=== PATIENT | female | born 1955 | race Caucasian/White ===

== ENCOUNTER 2016-07-11 19:28 | Emergency (ER) | payer OTHER ==
[2016-07-11 19:48] VITALS: PULSE 84; TEMP 98.3; BMI 23.8
[2016-07-11] MEDS ORDERED: KETOROLAC TROMETHAMINE 60 MG/2 ML VIAL IM ONE (20:40)
[2016-07-11] MEDS ORDERED: KETOROLAC TROMETHAMINE 60 MG/2 ML VIAL ONE (20:40)
[2016-07-11] MEDS ORDERED: OXYCODONE/APAP 5/325MG COMBO TABLET PO ONE (21:53)
[2016-07-11] MEDS ORDERED: OXYCODONE/APAP 5/325MG COMBO TABLET ONE ×2 (21:59→22:06)
--- NOTE | 2016-07-11 22:27 | PDOC ---
*Physical Exam - Vital Signs Last Vital Signs Temp Pulse Resp BP Pulse Ox 98.3 F 84 22 180/101 98 07/11/16 19:46 07/11/16 19:46 07/11/16 19:46 07/11/16 19:46 07/11/16 19:46 - Physical Exam Comments: 07/11/16 22:21 Sign-out received from fast track provider Pravin. Pt interviewed and examined. Ancillary studies reviewed. Patient states she is in an exorbitant amount of pain. -2 tab 5/325 Percocet X-ray wet read negative for fracture or new effusion. Per RN, patient took one Percocet but stated that "this does nothing for me" and refused second tablet. Patient is tearful and states that normally for her knee pain she gets Dilaudid "to take the edge off" and she has spoken to her PMD Kristin who states he can help her f/u with the appointment with Dr. Winters next week. [place] [employer] ATTENDANT referenced - patient does not have extensive history of narcotics use. -1 mg Dilaudid IVPB 07/11/16 23:37 Patient reassessed; states her pain is feeling much better but she feels a little nauseous. 8 mg Zofran ODT Patient is ready to go home; states her is picking her up. Advised patient to f/u with ortho as discussed with Dr. Foster. Advised patient of signs and symptoms for return to ER; patient verbalized understanding and agrees to plan. 07/11/16 23:38 ED Treatment Course - Medications Given in the ED: ED Medications Discontinued Medications Generic Name Dose Route Start Last Admin Trade Name Keven PRN Reason Stop Dose Admin Ketorolac Tromethamine 60 mg 07/11/16 20:40 07/11/16 20:46 Toradol Injection - IM 07/11/16 20:41 60 mg ONCE ONE Administration Oxycodone/Acetaminophen 2 combo 07/11/16 21:53 07/11/16 22:18 Percocet 5/325 - PO 07/11/16 21:54 2 combo ONCE ONE Administration *DC/Admit/Observation/Transfer Diagnosis at time of Disposition: Left knee pain Qualifiers: Chronicity: chronic Qualified Code(s): M25.562 - Pain in left knee - Discharge Dispostion Admit: No - Referrals Referrals: Abimael Foster MD [Primary Care Provider] - Rehan Winters MD [Staff Physician] - - Patient Instructions Printed Discharge Instructions: DI for Knee Pain Additional Instructions: As discussed, please follow-up with Dr. Winters on Wednesday for further evaluation of your left knee pain. If you experience loss of sensation, numbness, or tingling to your legs, or inability to move your leg, or any new or worsening symptoms, please return to the ER.
[2016-07-11] MEDS ORDERED: HYDROmorphone HCL CARPU-JECT 1 MG/1 ML DISP.SYRIN IVPUSH ONE (23:03)
[2016-07-11] MEDS ORDERED: HYDROmorphone HCL CARPU-JECT 1 MG/1 ML DISP.SYRIN ONE (23:05)
[2016-07-11] MEDS ORDERED: ONDANSETRON 8 MG TABLET (FP) PO ONE (23:37)
[2016-07-11] MEDS ORDERED: ONDANSETRON *ODT* 4 MG TABLET SL ONE (23:38)
[2016-07-11 23:46] VITALS: BP 158/82
== END 2016-07-11 23:46 | disposition home or self-care (01) ==
LOC: JERFT 19:28 → JER 19:28
PROC: 3E0233Z Introduction of Anti-inflammatory into Muscle, Percutaneous Approach (ICD-10-PCS; principal; 2016-07-11)
PROC: 3E033NZ Introduction of Analgesics, Hypnotics, Sedatives into Peripheral Vein, Percutaneous Approach (ICD-10-PCS; 2016-07-11)
DX: M25.562 Pain in left knee (principal)
CPT/HCPCS: 73562-TC-LT; 96372; 96374; 99281-25

== ENCOUNTER 2016-07-31 05:43 | Emergency (ER) | payer OTHER ==
[2016-07-31] MEDS ORDERED: SODIUM CHLORIDE 1,000 ML IV SCH (06:00)
--- NOTE | 2016-07-31 06:00 | PDOC ---
History of Present Illness - General History Source: EMS, Spouse Exam Limitations: Clinical Condition - History of Present Illness Initial Comments: 07/31/16 06:33 The patient is a 60 year old female with significant past medical history of hypertension, anemia, kidney stones and chronic left knee pain who presents to the ED BIBA from home with AMS just prior to arrival. As per , patient arrived home around 7pm last night when he noted her to be confused and have changes in mental status. Patient went to bed last night and after waking up he was not able to communicate with her. He immediately contacted EMS and patient was brought here to the ER. states patient was not complaining of any headache, chest pain, or SOB. Allergies: NKDA Social History: Cigarette use (10 daily). No alcohol or drug use reported Past Surgical History: Abdominal hernia repair, appendectomy PCP: None reported <Adry Hankins - Last Filed: 07/31/16 06:35> - General History Source: EMS, Family <Kishor Cancino - Last Filed: 07/31/16 06:48> - General Stated Complaint: WEAKNESS Time Seen by Provider: 07/31/16 05:47 Past History <Adry Hankins - Last Filed: 07/31/16 06:35> - Past Medical History Anemia: Yes Disorders: Yes (kidney stones) HTN: Yes Kidney Stones: Yes - Surgical History Abdominal Surgery: Yes (HERNIA repair) Appendectomy: Yes - Immunization History Immunization Up to Date: Yes - Psycho/Social/Smoking Cessation Hx Anxiety: No Suicidal Ideation: No Smoking Status: Yes Smoking History: Current every day smoker Have you smoked in the past 12 months: No Number of Cigarettes Smoked Daily: 10 'Breaking Loose' booklet given: 03/19/16 Hx Alcohol Use: No Drug/Substance Use Hx: No Substance Use Type: None Hx Substance Use Treatment: No <Kishor Cancino - Last Filed: 07/31/16 06:48> - Past Medical History Allergies/Adverse Reactions: Allergies Allergy/AdvReac Type Severity Reaction Status Date / Time No Known Allergies Allergy Verified 07/11/16 19:42 Home Medications: Ambulatory Orders Losartan/Hydrochlorothiazide [Losartan-Hctz 100-25 mg Tablet] 1 each PO BID 08/06 Sertraline HCl [Zoloft -] 50 mg PO DAILY #30 tablet 06/12/15 Alprazolam [Xanax] 0.5 mg PO DAILY PRN 03/19/16 Review of Systems - Review of Systems Able to Perform ROS?: No Comments:: 07/31/16 06:33 Unable to obtain due to clinical condition <BeckyanetteRodrigoAdry - Last Filed: 07/31/16 06:35> *Physical Exam - Vital Signs Last Vital Signs Temp Pulse Resp BP Pulse Ox 113 H 22 257/103 94 L 07/31/16 05:47 07/31/16 05:47 07/31/16 05:47 07/31/16 05:47 - Physical Exam Comments: 07/31/16 06:33 GENERAL: Well developed, well nourished. Somnolent, but arousable. Moderate distress. HEENT: Normocephalic, atraumatic. PERRLA, EOMI. No conjunctival pallor. Sclera are non- icteric. Moist mucous membranes. Oropharynx is clear. NECK: Supple. Full ROM. No JVD. Carotid pulses 2+ and symmetric, without bruits. No thyromegaly. No lymphadenopathy. CARDIOVASCULAR: Regular rate and rhythm. No murmurs, rubs, or gallops. Distal pulses are 2+ and symmetric. PULMONARY: No evidence of respiratory distress. Decreased breath sounds. No wheezing, rales or rhonchi. ABDOMINAL: Soft. Non-tender. Non-distended. No rebound or guarding. No organomegaly. Normoactive bowel sounds. MUSCULOSKELETAL No bony deformities or tenderness. No CVA tenderness. EXTREMITIES: No cyanosis. No clubbing. No edema. No calf tenderness. SKIN: Warm and dry. Normal capillary refill. No rashes. No jaundice. NEUROLOGICAL: Patient is somnolent, but arousable. Not answering questions appropriately. Not following commands. Moving upper extremities spontaneously, but not moving lower extremities. Dysarthric. <CrAdry - Last Filed: 07/31/16 06:35> NIH Stroke Scale - Last Known Well Date/Time & Onset Date Last Known Well: 07/30/16 Time Last Known Well: 19:00 - Initial Evaluation Level of consciousness: Not alert, but arousable with minimal stimulation Ask patient the month and their age: Both incorrect Ask patient to open & close eyes; make fist and let go: Both incorrect Best gaze (horizontal eye movement): Partial gaze palsy Visual field testing: Bilateral hemianopia (blind including cortical blindness) Facial paresis (Show teeth/raise eyebrows/close eyes tight): Minor paralysis ( flattened nasolabial fold, asymmetry on smiling) Motor Function: Left Arm: Some effort against gravity Motor Function: Right Arm: Some effort against gravity Motor Function: Left Leg: No effort against gravity Motor Function: Right Leg: No effort against gravity Limb Ataxia: Present in two limbs Sensory(Use pinprick test arms,legs,trunk,face/side to side): Mild to moderate decrease in sensation Best language (Describe picture, name items, read sentences): Severe aphasia Dysarthria (read several words): Near unintelligible or unable to speak Extinction and Inattention: Inattention or extinction bilaterally to one of the sensory modalities - Total Score NIH Stroke Scale Score: 28 <Kishor Cancino - Last Filed: 07/31/16 06:48> tPA Exclusion Checklist 0-3hr - Time Elapsed Date last known well: 07/30/16 Time last known well: 19:00 Elaspsed time: Day(s) and 11 Hour(s) and 44 Minutes - Thrombolytic Therapy Candidate Is the patient eligible for Thrombolytic Therapy?: No - Exclusion Criteria 0-3hr SBP greater than 185 or DBP greater than 110mmHg despite tx: Yes Recent IC/spinal surgery,head trauma or stroke w/in last 3mo: No Hx of previous IC hemorrhage, IC neoplasm, AVM or aneurysm: No Active internal bleeding: No Blding diathesis(low plt ct, inc PTT,INR>1.7 or use of NOAC): No Symptoms suggest subarachnoid hemorrhage: No CT demonstrates multilobar infarct(>1/3 cerebral hemiphere): No Arterial puncture at noncompressible site in previous 7 days: No Blood glucose concentration less than 50mg/dL (2.7mmol/L): No - Relative Exclusion Criteria 0-3h Life expectancy <1yr/severe co-morbid illness/ETHNOGRAPHIC MATERIALS CONSERVATOR on admit: No : No Patient/family refused: No Stroke severity too mild: No Recent acute DC (w/in previous 3 months): No Seizure at onset with postictal residual neuro impairments: No Major surgery or serious trauma w/in previous 14 days: No Recent GI or hemorrhage (w/in previous 21 days): No - Ineligibility reason(s) Reasons No tPA given: Outside of window - delayed arrival, See reason(s) noted above (BP 257/103) <Kishor Cancino - Last Filed: 07/31/16 06:48> Heart Score/ECG Review - ECG Impressions Comment:: 07/31/16 06:03 Sinus tachycardia @110bpm Possible left atrial enlargement ST & T wave abnormality, consider lateral ischemia Abnormal ECG <Adry Hankins - Last Filed: 07/31/16 06:35> Critical Care Time/MDM Note - Medical Decision Making Note: 07/31/16 06:32 EXAM: CT brain without contrast Reviewed by Imaging conference reservationist: FINDINGS: Positive for a 5.8 cm x 5.2 cm left frontal white matter parenchymal hemorrhage. Hemorrhage also involves the left basal ganglia. There is also a large amount of subarachnoid blood predominantly within the sub-arachnoid spaces of the left hemisphere but also in the central and basal cisterns as well as in the left lateral, third, and fourth ventricles. The mass effect from the hemorrhage results in a 6.6 mm frontal subfalcine shift to the right. Although this could be a primary parenchymal hemorrhage with blood leaking into the subarachnoid spaces, the possibility of a ruptured aneurysm causing subarachnoid and parenchymal blood should be considered as well. 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 07/31/16 06:34 Documentation prepared by Adry Hankins, acting as medical operations supervisor for Kishor Cancino MD <Adry Hankins - Last Filed: 07/31/16 06:35> - Medical Decision Making Note: 07/31/16 06:45 Dr. Cancino: The scribe's documentation has been prepared under my direction and personally reviewed by me in its entirery. I confirm that the note above accurately reflects all work, treatment, procedures, and medical decision making performed by me. Pt found to have a large subarchnoid and intraparcheymal bleeing of left frontal lobe. Pt going to be transferred to [facility] for Neurosurgical intervention. Case accepted by Dr. Beth and Dr. Larry. [facility] to make arrangements for transport. <Kishor Cancino - Last Filed: 07/31/16 06:48> Discharge Disposition <CrAdry - Last Filed: 07/31/16 06:35> - Discharge Dispostion Admit: No - Transfer to Acute Care Facility Receiving Facility: [facility] Accepting Physician:: Dr. Beth / Dr. Larry <Kishor Cancino - Last Filed: 07/31/16 06:48> - Diagnosis Subarchnoid hemorrhage-prolonged coma, Intraparenchymal hemorrhage of brain - Discharge Dispostion Disposition: TRANSFER ACUTE CARE/OTHER HOSP Condition at time of disposition: Guarded
[2016-07-31 06:02] VITALS: BMI 23.7
[2016-07-31] MEDS ORDERED: niCARdipine HCL 25 MG/10 ML AMPUL IVPB ONE (06:14)
[2016-07-31] MEDS ORDERED: NICARDIPINE 25 MG in DEXTROSE 5%-WATER - 240 ML IVPB SCH (06:15)
[2016-07-31] MEDS ORDERED: BUMETANIDE INJECTION 1 MG/4 ML VIAL ONE (06:16)
[2016-07-31 06:25] LABS: BASOPHIL 0.1 % (0-2.0); MCH 29.3 pg (25.7-33.7); MEAN CELL VOLUME 86.3 fl (80-96); NEUTROPHILS 91.4 % (42.8-82.8); PLATELET COUNT 311 K/MM3 (134-434); RDW 14.2 % (11.6-15.6); WHITE BLOOD COUNT 18.9 K/mm3 (4.0-10.0)
[2016-07-31 06:33] LABS: INR 1.04 (0.82-1.09); PROTHROMBIN TIME (PATIENT) 11.4 SEC (9.98-11.88)
[2016-07-31 06:33] LABS: URINE APPEARANCE CLEAR; URINE BILIRUBIN NEGATIVE (NEGATIVE); URINE COLOR LTYELLOW; URINE GLUCOSE (UA) 2+ (NEGATIVE); URINE KETONE NEGATIVE (NEGATIVE); URINE LEUK ESTERASE NEGATIVE (NEGATIVE); URINE NITRITE NEGATIVE (NEGATIVE); URINE UROBILINOGEN NEGATIVE E.U./dl (0.2-1.0)
[2016-07-31 06:36] LABS: URINE BLOOD 2+ (NEGATIVE); URINE PROTEIN 3+ (NEGATIVE)
[2016-07-31 06:38] LABS: URINE BACTERIA MODERATE /hpf (NONE SEEN); URINE MUCUS RARE; URINE RBC 17 /hpf (0-3); URINE WBC 3 /hpf (3-5)
[2016-07-31] MEDS ORDERED: levETIRAcetam 500 MG/5 ML INJECTION VIAL IVPB ONE (06:40)
[2016-07-31 06:41] LABS: URINE MARIJUANA THC NEGATIVE ng/ml (CUTOFF=50)
[2016-07-31 06:42] LABS: ALBUMIN 4.4 g/dl (3.4-5.0); BILIRUBIN,TOTAL 0.6 mg/dL (0.2-1.0); CALCIUM 9.7 mg/dL (8.5-10.1); CREATININE 1.2 mg/dL (0.55-1.02); TOT PROT 8.6 g/dl (6.4-8.2)
[2016-07-31 06:43] LABS: TROPONIN I 0.11 ng/ml (0.00-0.05)
[2016-07-31 06:54] VITALS: PULSE 70
[2016-07-31 07:20] VITALS: BP 220/120; TEMP 97.9
--- NOTE | 2016-07-31 09:47 | EKG ---
Test Reason : Blood Pressure : / mmHG Vent. Rate : 110 BPM Atrial Rate : 110 BPM P-R Int : 168 ms QRS Dur : 098 ms QT Int : 358 ms P-R-T Axes : 065 029 091 degrees QTc Int : 484 ms SINUS TACHYCARDIA POSSIBLE LEFT ATRIAL ENLARGEMENT NONSPECIFIC ST ABNORMALITY ABNORMAL ECG Confirmed by DONNA RODRÍGUEZ MD ([id number]) on 07/31/2016 9:47:16 AM Referred By: Confirmed By:DONNA RODRÍGUEZ MD
== END 2016-07-31 07:22 | disposition short-term general hospital (02) ==
LOC: JER 05:43
PROC: 3E033GC Introduction of Other Therapeutic Substance into Peripheral Vein, Percutaneous Approach (ICD-10-PCS; principal; 2016-07-31)
DX: I60.9 Nontraumatic subarachnoid hemorrhage, unspecified (principal); R40.20 Unspecified coma; I10 Essential (primary) hypertension; Z87.442 Personal history of urinary calculi; F17.210 Nicotine dependence, cigarettes, uncomplicated
CPT/HCPCS: 36415; 70450-TC; 71010-TC; 80053; 80307; 81003; 81015; 82465; 82550; 83718; 83721; 84478; 84484; 85025; 85610; 86850; 86900; 86901; 93005; 93010; 96365; 99285-25

== ENCOUNTER 2017-12-09 16:07 | Emergency (ER) | payer OTHER ==
[2017-12-09 16:31] VITALS: TEMP 98.7; BMI 27.2
[2017-12-09] MEDS ORDERED: morphine CARPU-JECT 4 MG/1 ML DISP.SYRIN IVPUSH ONE ×2 (17:38→19:13)
--- NOTE | 2017-12-09 17:47 | PDOC ---
History of Present Illness - General Chief Complaint: Weakness Stated Complaint: WEAKNESS Time Seen by Provider: 12/09/17 17:03 - History of Present Illness Initial Comments: 12/09/17 17:48 62 yo F w a hx hypertension, anemia, kidney stones, Brain aneurysm and chronic left knee pain is here with 4 hours of intense 10/10 RLQ abdominal pain with radiation to the back and groin. She has had many kidney stones in the past and says this is exactly how it always feels. She denies fever, hematuria, urgency, frequency, recent infections, trauma, recent travel, headache, n/v/d. Past History - Past Medical History Allergies/Adverse Reactions: Allergies Allergy/AdvReac Type Severity Reaction Status Date / Time No Known Allergies Allergy Verified 07/11/16 19:42 Home Medications: Ambulatory Orders Losartan/Hydrochlorothiazide [Losartan-Hctz 100-25 mg Tablet] 1 each PO BID 08/06 Sertraline HCl [Zoloft -] 50 mg PO DAILY #30 tablet 06/12/15 Alprazolam [Xanax] 0.5 mg PO DAILY PRN 03/19/16 Amlodipine Besylate 10 mg PO DAILY 12/09/17 Aspirin [Aspirin EC] 81 mg PO DAILY 12/09/17 Ciprofloxacin [Cipro -] 250 mg PO BID #6 tablet 12/09/17 Dextromethorphan HBr/Quinidine [Nuedexta 20-10 mg Capsule] 1 each PO BID Famotidine 20 mg PO DAILY 12/09/17 Lisinopril [Prinivil -] 40 mg PO DAILY 12/09/17 Metoprolol Succinate [Toprol Xl] 25 mg PO DAILY 12/09/17 Quetiapine Fumarate [Seroquel -] 25 mg PO HS 12/09/17 Trazodone HCl 50 mg PO HS 12/09/17 levETIRAcetam [Keppra -] 500 mg PO BID 12/09/17 Methocarbamol [Robaxin -] 500 mg PO TID #30 tablet 12/10/17 Anemia: Yes COPD: No Disorders: Yes (kidney stones) HTN: Yes Kidney Stones: Yes Psychiatric Problems: Yes (depression) - Surgical History Abdominal Surgery: Yes (HERNIA repair) Appendectomy: Yes - Immunization History Immunization Up to Date: Yes - Suicide/Smoking/Psychosocial Hx Smoking Status: Yes Smoking History: Current some day smoker Have you smoked in the past 12 months: No Number of Cigarettes Smoked Daily: 10 Information on smoking cessation initiated: No 'Breaking Loose' booklet given: 03/19/16 Hx Alcohol Use: No Drug/Substance Use Hx: No Substance Use Type: None Hx Substance Use Treatment: No Review of Systems - Review of Systems Comments:: 12/09/17 18:03 GASTROINTESTINAL: Positive: RLQ abdominal pain Absent:abdominal distension, nausea, vomiting, diarrhea, constipation, melena, hematochezia GENITOURINARY: Positive: dysuria, flank pain Absent:frequency, urgency, hesitancy, hematuria, genital pain CONSTITUTIONAL: Absent: fever, chills, diaphoresis, generalized weakness, malaise, loss of appetite HEENT: Absent: rhinorrhea, nasal congestion, throat pain, throat swelling, difficulty swallowing, mouth swelling, ear pain, eye pain, visual Changes CARDIOVASCULAR: Absent: chest pain, syncope, palpitations, irregular heart rate, lightheadedness , peripheral edema RESPIRATORY: Absent: cough, shortness of breath, dyspnea with exertion, orthopnea, wheezing, stridor, hemoptysis MUSCULOSKELETAL: Absent: myalgia, arthralgia, joint swelling SKIN: Absent: rash, itching, pallor HEMATOLOGIC/IMMUNOLOGIC: Absent: easy bleeding, easy bruising, lymphadenopathy, frequent infections ENDOCRINE: Absent: unexplained weight gain, unexplained weight loss, heat intolerance, cold intolerance NEUROLOGIC: Absent: headache, focal weakness or paresthesias, dizziness, unsteady gait, seizure, mental status changes, bladder or bowel incontinence PSYCHIATRIC: Absent: anxiety, depression, suicidal or homicidal ideation, hallucinations. *Physical Exam - Vital Signs Last Vital Signs Temp Pulse Resp BP Pulse Ox 98.7 F 76 18 171/91 98 12/09/17 16:30 12/09/17 16:30 12/09/17 16:30 12/09/17 16:30 12/09/17 16:30 - Physical Exam Comments: 12/09/17 18:05 ABDOMINAL: The RLQ is TTP Soft. Non-distended. No rebound or guarding. No organomegaly. Normoactive bowel sounds. GENERAL: Patient is in significant distress due to her pain which she attributes to kidney stones. Well developed, well nourished. Awake and alert. HEENT: PERRLA, EOMI. No conjunctival pallor. Sclera are non-icteric. Moist mucous membranes. Oropharynx is clear. NECK: Supple. Full ROM. No JVD. Carotid pulses 2+ and symmetric, without bruits. No thyromegaly. No lymphadenopathy. CARDIOVASCULAR: Regular rate and rhythm. No murmurs, rubs, or gallops. Distal pulses are 2+ and symmetric. PULMONARY: No evidence of respiratory distress. Lungs clear to auscultation bilaterally. No wheezing, rales or rhonchi. MUSCULOSKELETAL There is obvious R CVA tenderness. Normal range of motion at all joints. No bony deformities or tenderness. EXTREMITIES: No cyanosis. No clubbing. No edema. No calf tenderness. SKIN: Warm and dry. Normal capillary refill. No rashes. No jaundice. NEUROLOGICAL: Alert, awake, appropriate. Cranial nerves 2-12 intact. No deficits to light touch and temperature in face, upper extremities and lower extremities. No motor deficits in the in face, upper extremities and lower extremities. Normoreflexic in the upper and lower extremities. Normal speech. Toes are down-going bilaterally. Gait is normal without ataxia. PSYCHIATRIC: Cooperative. Good eye contact. Appropriate mood and affect. 12/09/17 18:06 Heart Score/ECG Review - Electrocardiogram EKG: Normal - Age Age: 45-65 - ECG Intrepretation Rhythm: Regular Rhythm - Blanch Blanch: Normal - P and FL Delta Wave(s) Present: No WPW: No - ST and T Early Repolarization: No Non Specific ST-T Wave changes: No Flattened T Waves: No Prolonged Q-T Interval: No - ECG Impressions Normal ECG: No Non-specific ST Elevation: No Ischemic Changes: No Torsades ridge Pointes: No WPW: No ED Treatment Course - LABORATORY CBC & Chemistry Diagram: 12/09/17 18:23 12/09/17 18:23 Medical Decision Making - Medical Decision Making 12/09/17 18:08 62 yo F w a hx of many kidney stones here w/ RLQ abd pain radiating to back and groin which she states is exactly how her kidney stones always feel. Plan: Non-con abd CT, Pain meds, labs, urine, re-assess. *DC/Admit/Observation/Transfer Diagnosis at time of Disposition: UTI (urinary tract infection) - Discharge Dispostion Disposition: HOME Condition at time of disposition: Stable - Prescriptions Prescriptions: Ciprofloxacin [Cipro -] 250 mg PO BID #6 tablet Methocarbamol [Robaxin -] 500 mg PO TID #30 tablet - Referrals Referrals: Abimael Foster MD [Primary Care Provider] - - Patient Instructions Printed Discharge Instructions: Urinary Tract Infection Additional Instructions: You were seen here today because you were having some lower abdominal pain on the Right side. We did some tests and you were diagnosed with a UTI. We gave you medications for the infection and some pain medication as well. It is at [facility]. Please follow up with your PCP. Please come back to the ED if symptoms worsen, if a new symptom develops, or if anything else concerning happens. Thank you - Post Discharge Activity
[2017-12-09] MEDS ORDERED: morphine SULFATE 4 MG/ML VIAL ONE ×2 (18:01→19:39)
[2017-12-09 18:35] LABS: BASO % 0.5 % (0-2.0); EOS % 2.4 % (0-4.5); HEMATOCRIT 38.2 % (32.4-45.2); HEMOGLOBIN 12.8 GM/dL (10.7-15.3); LYMPH % 28.5 % (8-40); MCH 28.9 pg (25.7-33.7); MCHC 33.6 g/dl (32.0-36.0); MEAN CELL VOLUME 85.9 fl (80-96); MEAN PLT VOLUME 8.2 fl (7.5-11.1); MONO % 7.4 % (3.8-10.2); NEUT % 61.2 % (42.8-82.8); PLATELET COUNT 272 K/MM3 (134-434); RBC 4.45 M/mm3 (3.60-5.2); RDW 14.1 % (11.6-15.6); WHITE BLOOD COUNT 10.1 K/mm3 (4.0-10.0)
[2017-12-09 18:55] LABS: ALBUMIN 3.5 g/dl (3.4-5.0); ANION GAP 9 (8-16); BILIRUBIN,TOTAL 0.3 mg/dL (0.2-1.0); BLOOD UREA NITROGEN 22 mg/dL (7-18); CALCIUM 8.9 mg/dL (8.5-10.1); CHLORIDE 105 mmol/L (98-107); CO2 28 mmol/L (21-32); GLUCOSE,RANDOM 132 mg/dL (74-106); POTASSIUM 3.8 mmol/L (3.5-5.1); SGOT/AST 10 U/L (15-37); SGPT/ALT 25 U/L (12-78); SODIUM 142 mmol/L (136-145); TOT PROT 7.2 g/dl (6.4-8.2)
[2017-12-09 18:56] LABS: ALK PHOS 120 U/L (45-117)
[2017-12-09] MEDS ORDERED: MORPHINE SULFATE 2 MG/ML VIAL ONE (19:39)
[2017-12-09 19:53] VITALS: BP 138/78; PULSE 67
[2017-12-09 20:09] LABS: URINE APPEARANCE SLCLOUDY; URINE BILIRUBIN NEGATIVE (<2.0 mg/dL); URINE COLOR YELLOW; URINE GLUCOSE (UA) NEGATIVE (NEGATIVE); URINE KETONE NEGATIVE (NEGATIVE); URINE LEUK ESTERASE NEGATIVE (NEGATIVE); URINE NITRITE POSITIVE (NEGATIVE); URINE PROTEIN NEGATIVE (NEGATIVE); URINE UROBILINOGEN NEGATIVE mg/dL (0.2-1.0)
[2017-12-09] MEDS ORDERED: KETOROLAC TROMETHAMINE 30 MG/1 ML VIAL IVPUSH ONE (20:54)
[2017-12-09] MEDS ORDERED: KETOROLAC TROMETHAMINE 30 MG/1 ML VIAL ONE (21:19)
[2017-12-09 21:25] LABS: EPI CELLS RARE /HPF (FEW); URINE BACTERIA RARE /hpf (NONE SEEN); URINE MUCUS RARE
[2017-12-09] MEDS ORDERED: CIPROFLOXACIN 250 MG TABLET (RESTRICTED TO ID) PO ONE (21:41)
--- NOTE | 2017-12-09 23:10 | PDOC ---
*Physical Exam - Vital Signs Last Vital Signs Temp Pulse Resp BP Pulse Ox 98.7 F 67 22 138/78 96 12/09/17 16:30 12/09/17 19:52 12/09/17 19:52 12/09/17 19:52 12/09/17 19:52 ED Treatment Course - LABORATORY CBC & Chemistry Diagram: 12/09/17 18:23 12/09/17 18:23 - ADDITIONAL ORDERS Additional order review: Laboratory Results 12/09/17 12/09/17 20:00 18:23 Sodium 142 Potassium 3.8 Chloride 105 Carbon Dioxide 28 Anion Gap 9 BUN 22 H Creatinine 1.0 Creat Clearance w eGFR 56.37 Random Glucose 132 H Calcium 8.9 Total Bilirubin 0.3 AST 10 L ALT 25 Alkaline Phosphatase 120 H Total Protein 7.2 Albumin 3.5 Urine Color Yellow Urine Appearance Slcloudy Urine pH 6.0 Ur Specific [place] 1.016 Urine Protein Negative Urine Glucose (UA) Negative Urine Ketones Negative Urine Blood 1+ H Urine Nitrite Positive Urine Bilirubin Negative Urine Urobilinogen Negative Ur Leukocyte Esterase Negative Urine WBC (Auto) 10 Urine RBC (Auto) 12 Ur Epithelial Cells Rare Urine Bacteria Rare Urine Mucus Rare 12/09/17 18:23 RBC 4.45 MCV 85.9 MCHC 33.6 RDW 14.1 MPV 8.2 Neutrophils % 61.2 D Lymphocytes % 28.5 D Monocytes % 7.4 D Eosinophils % 2.4 D Basophils % 0.5 D - Medications Given in the ED: ED Medications Discontinued Medications Generic Name Dose Route Start Last Admin Trade Name Keven PRN Reason Stop Dose Admin Ciprofloxacin 250 mg 12/09/17 21:41 12/09/17 22:26 Cipro (Restricted To Id) PO 12/09/17 21:42 250 mg ONCE ONE Administration Ketorolac Tromethamine 30 mg 12/09/17 20:54 12/09/17 21:15 Toradol Injection - IVPUSH 12/09/17 20:55 30 mg ONCE ONE Administration Morphine Sulfate 4 mg 12/09/17 17:38 12/09/17 18:12 Morphine Injection - IVPUSH 12/09/17 17:39 4 mg ONCE ONE Administration Morphine Sulfate 6 mg 12/09/17 19:13 12/09/17 19:46 Morphine Injection - IVPUSH 12/09/17 19:14 6 mg ONCE ONE Administration Medical Decision Making - Medical Decision Making 12/09/17 23:02 Patient is a 62 year old female with PMH of kidney stones presenting to ED with complaints of RLQ abdominal pain that radiates to back and groin. Patient was signed out to me by Dr. De Guzman. We were awaiting results of CT scan and UA. CT scan did not show evidence for urolithiasis or obstructive uropathology. Air/ gas foci within urinary bladder lumen. No AAA. UA showed Nitrites, blood and 10WBC. Due to patient's history of stone development and positive UTI, patient was given Cipro 250mg in the ED. Patient was prescribed Cipro 250mg to take BID for 3 days. Patient was given morphine and Toradol for pain. Patient's vital signs were stable. Patient could not be discharged home because she uses a walker and is needs help to climb up 29 steps to get to her home. Her son won't be available until 6 am and her insurance does not cover ambulance. Patient was admitted under ED obs. She will be d/c home when her son comes to pick her up. *DC/Admit/Observation/Transfer Diagnosis at time of Disposition: UTI (urinary tract infection) - Discharge Dispostion Disposition: HOME Condition at time of disposition: Stable Decision to Admit order Date/Time: Decision to Admit Order Category Date Time Status Decision to Admit to Hospital Routine Admission 12/09/17 22:11 Active - Prescriptions Prescriptions: Ciprofloxacin [Cipro -] 250 mg PO BID #6 tablet Methocarbamol 250 mg PO BID 3 Days #6 tablet - Referrals Referrals: Abimael Foster MD [Primary Care Provider] - - Patient Instructions Printed Discharge Instructions: Urinary Tract Infection Additional Instructions: You were seen here today because you were having some lower abdominal pain on the Right side. We did some tests and you were diagnosed with a UTI. We gave you medications for the infection and some pain medication as well. It is at [facility]. Please follow up with your PCP. Please come back to the ED if symptoms worsen, if a new symptom develops, or if anything else concerning happens. Thank you - Post Discharge Activity
[2017-12-10] MEDS ORDERED: morphine CARPU-JECT 4 MG/1 ML DISP.SYRIN IVPUSH ONE (02:22)
[2017-12-10] MEDS ORDERED: morphine SULFATE 4 MG/ML VIAL ONE (02:25)
[2017-12-10] MEDS ORDERED: MORPHINE SULFATE 2 MG/ML VIAL ONE (02:25)
--- NOTE | 2017-12-11 11:25 | EKG ---
Test Reason : Blood Pressure : / mmHG Vent. Rate : 068 BPM Atrial Rate : 068 BPM P-R Int : 194 ms QRS Dur : 090 ms QT Int : 420 ms P-R-T Axes : 039 009 060 degrees QTc Int : 446 ms NORMAL SINUS RHYTHM NORMAL ECG WHEN COMPARED WITH ECG OF 31-JUL-2016 05:48, VENT. RATE HAS DECREASED BY 42 BPM NONSPECIFIC T WAVE ABNORMALITY NOW EVIDENT IN ANTERIOR LEADS T WAVE INVERSION NO LONGER EVIDENT IN LATERAL LEADS Confirmed by YESICA OSBORNE MD ([id number]) on 12/11/2017 11:25:06 AM Referred By: Confirmed By:YESICA OSBORNE MD
== END 2017-12-10 06:32 | disposition home or self-care (01) ==
LOC: JER 16:07 → UNDOADMOB 22:11 → JERBED 22:11 → UNDOADMOB 12-10 00:33 → JERBED 12-10 00:33 → JER 12-10 06:32
PROC: 3E033NZ Introduction of Analgesics, Hypnotics, Sedatives into Peripheral Vein, Percutaneous Approach (ICD-10-PCS; principal; 2017-12-09)
PROC: 3E033NZ Introduction of Analgesics, Hypnotics, Sedatives into Peripheral Vein, Percutaneous Approach (ICD-10-PCS; 2017-12-09)
PROC: 3E033NZ Introduction of Analgesics, Hypnotics, Sedatives into Peripheral Vein, Percutaneous Approach (ICD-10-PCS; 2017-12-09)
PROC: 3E0333Z Introduction of Anti-inflammatory into Peripheral Vein, Percutaneous Approach (ICD-10-PCS; 2017-12-09)
DX: N39.0 Urinary tract infection, site not specified (principal); Z87.442 Personal history of urinary calculi; I10 Essential (primary) hypertension; F32.9 Major depressive disorder, single episode, unspecified; M25.562 Pain in left knee; G89.29 Other chronic pain; Z86.79 Personal history of other diseases of the circulatory system
CPT/HCPCS: 36415; 74176-TC; 80053; 81003; 81015; 85025; 93005; 93010; 99285-25

== ENCOUNTER 2019-07-09 09:05 | Inpatient (IN) | payer OTHER ==
--- NOTE | 2019-07-09 09:44 | PDOC ---
History of Present Illness - General Chief Complaint: Pain, Acute Stated Complaint: PAIN Time Seen by Provider: 07/09/19 09:29 - History of Present Illness Initial Comments: 07/09/19 09:53 The patient is a 63 year old female with a history of HTN, Kidney Stones, CVA who presents for evaluation of right flank pain. The patient reports a 3 day history of constant right sided flank pain with radiation into her right abdomen. She states that her symptoms are similar to her prior kidney stones but has not resolved prompting her presentation to the ED for further evaluation. She otherwise denies fevers, chills, SOB, chest pain, nausea, vomiting, or changes with urination or bowel movements. Past History - Past Medical History Allergies/Adverse Reactions: Allergies Allergy/AdvReac Type Severity Reaction Status Date / Time No Known Allergies Allergy Verified 07/09/19 09:18 Home Medications: Ambulatory Orders Losartan/Hydrochlorothiazide [Losartan-Hctz 100-25 mg Tablet] 1 each PO BID 08/06 Sertraline HCl [Zoloft -] 50 mg PO DAILY #30 tablet 06/12/15 Alprazolam [Xanax] 0.5 mg PO DAILY PRN 03/19/16 Amlodipine Besylate 10 mg PO DAILY 12/09/17 Aspirin [Aspirin EC] 81 mg PO DAILY 12/09/17 Ciprofloxacin [Cipro -] 250 mg PO BID #6 tablet 12/09/17 Dextromethorphan HBr/Quinidine [Nuedexta 20-10 mg Capsule] 1 each PO BID Famotidine 20 mg PO DAILY 12/09/17 Lisinopril [Prinivil -] 40 mg PO DAILY 12/09/17 Metoprolol Succinate [Toprol Xl] 25 mg PO DAILY 12/09/17 Quetiapine Fumarate [Seroquel -] 25 mg PO HS 12/09/17 levETIRAcetam [Keppra -] 500 mg PO BID 12/09/17 traZODone HCL [Trazodone HCl] 50 mg PO HS 12/09/17 Methocarbamol [Robaxin -] 500 mg PO TID #30 tablet 12/10/17 Anemia: Yes CVA: Yes (ruptured barain aneurysm) COPD: No Disorders: Yes (kidney stones) HTN: Yes Kidney Stones: Yes Psychiatric Problems: Yes (depression) - Surgical History Abdominal Surgery: Yes (HERNIA repair) Appendectomy: Yes - Immunization History Immunization Up to Date: Yes - Psycho Social/Smoking Cessation Hx Smoking Status: Yes Smoking History: Current every day smoker Have you smoked in the past 12 months: No Number of Cigarettes Smoked Daily: 8 Information on smoking cessation initiated: No 'Breaking Loose' booklet given: 03/19/16 Hx Alcohol Use: No Drug/Substance Use Hx: No Substance Use Type: None Hx Substance Use Treatment: No Review of Systems - Review of Systems Comments:: 07/09/19 09:57 Constitutional: No fevers, chills, fatigue, malaise HEENT: No Rhinorrhea, nasal congestion, visual changes Cardiovascular: No chest pain, syncope, palpitations, lightheadedness Respiratory: No Cough, SOB, Hemoptysis, Gastrointestinal: Right side abdominal pain. No Nausea, Vomiting, Constipation , Diarrhea, Melena Genitourinary: Right Flank pain. No Dysuria, Frequency, Urgency, Hesitancy, Hematuria, Musculoskeletal: No Myalgia, arthralgia Skin: No rashes, itching, bruising, pallor Neurologic: No Headache, Dizziness, Numbness, Weakness, or Tingling Psychiatric: No Hallucinations. No SI or HI *Physical Exam - Vital Signs Last Vital Signs Temp Pulse Resp BP Pulse Ox 98.0 F 82 18 168/120 H 100 07/09/19 09:16 07/09/19 09:16 07/09/19 09:16 07/09/19 09:16 07/09/19 09:16 - Physical Exam 07/09/19 09:58 General Appearance: Nourished. No Apparent Distress HEENT: No Pharyngeal Erythema, Tonsillar Exudate, Tonsillar Erythema Neck: No Cervical Lymphadenopathy Respiratory/Chest: Lungs Clear, Normal Breath Sounds. No Crackles, Rales, Rhonchi, Wheezing Cardiovascular: Regular Rhythm, Regular Rate. No Murmur, Gallops, Rubs Gastrointestinal/Abdominal: Normal Bowel Sounds, Soft. Right sided abdominal tenderness to palpation. No Guarding, Rebound, Musculoskeletal: Right CVA Tenderness, No Left CVA Tenderness Extremity: Normal Capillary Refill Integumentary: Normal Color, Dry, Warm Neurologic: Fully Oriented, Alert, Normal Mood/Affect, Normal Response, ED Treatment Course - LABORATORY CBC & Chemistry Diagram: 07/09/19 09:36 07/09/19 09:36 Medical Decision Making - Medical Decision Making 07/09/19 09:58 The patient is a 63 year old female with a history of HTN, Kidney Stones, CVA who presents for evaluation of right flank pain. Given the patient's history and physical exam, we will obtain a cbc, cmp, ua, CT abdomen/pelvis to evaluate further. We will treat with iv fluids and tylenol and continue to monitor and reassess while here in the ED. 07/09/19 14:22 CBC, cmp, ua were unremarkable. CT abdomen/pelvis did not demonstrate any acute process as read by our radiologist. The patient continues to report severe abdominal pain despite multiple doses of morphine. Given her intractable abdominal pain, the patient will require admission for further monitoring and management. We discussed the case with Dr. Strange with the admitting team who accepted the patient for admission. Discharge - Discharge Information Problems reviewed: Yes Clinical Impression/Diagnosis: Abdominal pain Qualifiers: Abdominal location: unspecified location Qualified Code(s): R10.9 - Unspecified abdominal pain Condition: Stable - Admission Yes - Follow up/Referral - Patient Discharge Instructions - Post Discharge Activity
[2019-07-09] MEDS ORDERED: SODIUM CHLORIDE 1,000 ML IV STA (09:47)
[2019-07-09] MEDS ORDERED: ACETAMINOPHEN 1000 MG/100 ML VIAL (NON FORMULARY) IVPB ONE ×2 (09:47→22:15)
[2019-07-09] MEDS ORDERED: ACETAMINOPHEN INJECTION 100 ML IVPB ONE (09:49)
[2019-07-09 09:52] LABS: BASO % 0.8 % (0-2.0); EOS % 1.4 % (0-4.5); HEMATOCRIT 45.6 % (32.4-45.2); HEMOGLOBIN 15.4 GM/dL (10.7-15.3); LYMPH % 37.5 % (8-40); MCH 29.7 pg (25.7-33.7); MCHC 33.9 g/dl (32.0-36.0); MEAN CELL VOLUME 87.7 fl (80-96); MEAN PLT VOLUME 8.6 fl (7.5-11.1); MONO % 5.3 % (3.8-10.2); PLATELET COUNT 275 K/MM3 (134-434); RDW 15.6 % (11.6-15.6); WHITE BLOOD COUNT 8.9 K/mm3 (4.0-10.0)
[2019-07-09 10:06] LABS: EPI CELLS 1.4 /HPF (0-5/HPF); HYALINE CASTS 0 /lpf (0-8); PH,URINE 7.5 (5.0-8.0); URINE APPEARANCE CLEAR; URINE BACTERIA 23.7 /hpf (NEGATIVE); URINE BILIRUBIN NEGATIVE (NEGATIVE); URINE COLOR YELLOW; URINE GLUCOSE (UA) NEGATIVE (NEGATIVE); URINE KETONE NEGATIVE (NEGATIVE); URINE LEUK ESTERASE NEGATIVE (NEGATIVE); URINE NITRITE NEGATIVE (NEGATIVE); URINE PROTEIN TRACE (NEGATIVE); URINE RBC 9 /hpf (0-4); URINE UROBILINOGEN 0.2 mg/dL (0.2-1.0); URINE WBC 2 /hpf (0-5)
[2019-07-09 10:18] LABS: ALBUMIN 3.6 g/dl (3.4-5.0); BILIRUBIN,TOTAL 0.4 mg/dL (0.2-1); BLOOD UREA NITROGEN 15.6 mg/dL (7-18); CALCIUM 9.1 mg/dL (8.5-10.1); CREATININE 0.9 mg/dL (0.55-1.3); POTASSIUM 3.9 mmol/L (3.5-5.1); TOT PROT 7.5 g/dl (6.4-8.2)
[2019-07-09] MEDS ORDERED: morphine CARPU-JECT 4 MG/1 ML DISP.SYRIN IVPUSH ONE ×3 (10:27→15:55)
[2019-07-09] MEDS ORDERED: morphine SULFATE 4 MG/ML VIAL ONE ×3 (10:30→16:04)
[2019-07-09] MEDS ORDERED: ONDANSETRON 4 MG/2 ML VIAL IVPUSH ONE (12:28)
[2019-07-09] MEDS ORDERED: ONDANSETRON 4 MG/2 ML VIAL ONE (12:45)
--- NOTE | 2019-07-09 12:59 | PDOC ---
Documentation entered by Priscilla Jaime SCRIBE, acting as scribe for Becky Ashley MD. Becky Ashley MD: This documentation has been prepared by the Yeni mccabe Nirvannie, SCRIBE, under my direction and personally reviewed by me in its entirety. I confirm that the documentation accurately reflects all work, treatment, procedures, and medical decision making performed by me. Attending Attestation - Resident Resident Name: Manuel Cherry - ED Attending Attestation I have performed the following: I have examined & evaluated the patient, The case was reviewed & discussed with the resident, I agree w/resident's findings & plan, Exceptions are as noted - HPI HPI: 07/09/19 10:12 The patient is a 63 year old female, with a significant past medical history of HTN, anemia, kidney stones, CVA, and chronic left knee pain, who presents to the emergency department with 3 days of constant right-sided flank pain with radiation to the right-side abdomen. As per patient, her symptoms are similar to previous kidney stones, prompting her arrival to the ED. Allergies: NKDA Primary Care Physician: Dr. Mai Foster - Physicial Exam PE: GENERAL: Awake, alert, and fully oriented, in no acute distress HEAD: No signs of trauma EYES: PERRLA, EOMI, sclera anicteric, conjunctiva clear ENT: Auricles normal inspection, hearing grossly normal, nares patent, oropharynx clear without exudates. Dry mucosa NECK: Normal ROM, supple, no lymphadenopathy, JVD, or masses LUNGS: Breath sounds equal, clear to auscultation bilaterally. No wheezes, and no crackles HEART: Regular rate and rhythm, normal S1 and S2, no murmurs, rubs or gallops ABDOMEN: Soft, +RLQ and R CVAT, normoactive bowel sounds. No guarding, no rebound. No masses EXTREMITIES: Normal range of motion, no edema. No clubbing or cyanosis. No cords, erythema, or tenderness NEUROLOGICAL: Cranial nerves II through XII grossly intact. Normal speech, normal gait. Motor and sensation intact SKIN: Warm, dry, normal turgor, no rashes or lesions noted. - Medical Decision Making Pt with R-sided abd tenderness and CVAT, history of prior kidney stones. Will obtain labs, urine, CT.
--- NOTE | 2019-07-09 18:38 | HP ---
Admitting History and Physical - Admission History of Present Illness: Pt is a 63 year old female with PMH significant for HTN, anemia, kidney stones, CVA, and chronic left knee pain, who presents to the ER with 3 days of constant right-sided flank pain with radiation to the right-side abdomen. As per patient , her symptoms are similar to previous kidney stones, prompting her arrival to the ED. Pt given multiple doses of pain meds w/out relief. - Past Medical History Cardiovascular: Yes: HTN Gastrointestinal: Yes: GERD (?) Renal/: Yes: Renal Calculi (Hx of) Psych: Yes: Anxiety (?) Musculoskeletal: Yes: Osteoarthritis (see HPI) - Past Surgical History Past Surgical History: Yes: Appendectomy, Hernia Repair (abd wall) - Smoking History Smoking history: Current every day smoker Have you smoked in the past 12 months: No Aproximately how many cigarettes per day: 8 - Alcohol/Substance Use Hx Alcohol Use: No History of Substance Use: reports: None - Social History ADL: Independent History of Recent Travel: No Home Medications - Allergies Allergies/Adverse Reactions: Allergies Allergy/AdvReac Type Severity Reaction Status Date / Time No Known Allergies Allergy Verified 07/09/19 09:18 - Home Medications Home Medications: Ambulatory Orders Losartan/Hydrochlorothiazide [Losartan-Hctz 100-25 mg Tablet] 1 each PO BID 08/06 Sertraline HCl [Zoloft -] 50 mg PO DAILY #30 tablet 06/12/15 Alprazolam [Xanax] 0.5 mg PO DAILY PRN 03/19/16 Amlodipine Besylate 10 mg PO DAILY 12/09/17 Aspirin [Aspirin EC] 81 mg PO DAILY 12/09/17 Ciprofloxacin [Cipro -] 250 mg PO BID #6 tablet 12/09/17 Dextromethorphan HBr/Quinidine [Nuedexta 20-10 mg Capsule] 1 each PO BID Famotidine 20 mg PO DAILY 12/09/17 Lisinopril [Prinivil -] 40 mg PO DAILY 12/09/17 Metoprolol Succinate [Toprol Xl] 25 mg PO DAILY 12/09/17 Quetiapine Fumarate [Seroquel -] 25 mg PO HS 12/09/17 levETIRAcetam [Keppra -] 500 mg PO BID 07/19/18 traZODone HCL [Trazodone HCl] 50 mg PO HS 12/09/17 Methocarbamol [Robaxin -] 500 mg PO TID #30 tablet 12/10/17 Family Medical History Family History: Unremarkable Review of Systems - Review of Systems Constitutional: reports: No Symptoms Eyes: reports: No Symptoms HENT: reports: No Symptoms Neck: reports: No Symptoms Cardiovascular: reports: No Symptoms Respiratory: reports: No Symptoms Gastrointestinal: reports: Abdominal Pain Genitourinary: reports: No Symptoms Physical Examination Vital Signs: Vital Signs Temperature 97.8 F 07/09/19 11:14 Pulse Rate 62 07/09/19 11:14 Respiratory Rate 16 07/09/19 11:14 Blood Pressure 135/78 07/09/19 11:14 O2 Sat by Pulse Oximetry (%) 98 07/09/19 11:14 Constitutional: Yes: Well Nourished Eyes: Yes: WNL HENT: Yes: WNL Neck: Yes: WNL, Supple Cardiovascular: Yes: WNL, Regular Rate and Rhythm Respiratory: Yes: WNL, Regular, CTA Bilaterally Gastrointestinal: Yes: WNL, Normal Bowel Sounds, Soft, Abdomen, Obese Musculoskeletal: Yes: WNL Extremities: Yes: WNL Edema: No Neurological: Yes: WNL, Alert, Oriented ...Motor Strength: WNL Labs: CBC, BMP 07/09/19 09:36 07/09/19 09:36 Problem List - Problems (1) Abdominal pain Assessment/Plan: Unclear etiology Liquid diet CT scan abd/pelvis did not show any acute pathology /Musculoskeletal pain Check ct scan LS spine GI/Urology consults Code(s): R10.9 - UNSPECIFIED ABDOMINAL PAIN Qualifiers: Abdominal location: unspecified location Qualified Code(s): R10.9 - Unspecified abdominal pain (2) HTN (hypertension) Assessment/Plan: BP stable Cont norvasc/metoprolol/lisinopril/losartan/hctz Code(s): I10 - ESSENTIAL (PRIMARY) HYPERTENSION Qualifiers: Hypertension type: essential hypertension Qualified Code(s): I10 - Essential (primary) hypertension (3) HLD (hyperlipidemia) Code(s): E78.5 - HYPERLIPIDEMIA, UNSPECIFIED (4) Intraparenchymal hemorrhage of brain Assessment/Plan: Cont keppra Code(s): I61.9 - NONTRAUMATIC INTRACEREBRAL HEMORRHAGE, UNSPECIFIED
[2019-07-09] MEDS: DEXTROSE 5%-0.45% SALINE 1,000 ML IV SCH (19:11)
[2019-07-09] MEDS ORDERED: PATIENT'S OWN MEDICATION (NON-FORMULARY) (Losartan/Hydrochlorothiazide [Losartan-Hctz 100- PO SCH (22:00)
[2019-07-09] MEDS ORDERED: MORPHINE SULFATE 2 MG/ML VIAL IVPUSH ONE (22:30)
[2019-07-09] MEDS: HEPARIN NA (PORCINE) 5,000 UNITS/ML 1ML VIAL SQ SCH (23:20)
[2019-07-09] MEDS: levETIRAcetam 500 MG TABLET (FP) PO SCH (23:21)
[2019-07-09] MEDS: QUEtiapine FUMARATE 25 MG TABLET PO SCH (23:21)
[2019-07-10 00:21] VITALS: BMI 32.4
[2019-07-10] MEDS ORDERED: KETOROLAC TROMETHAMINE 30 MG/1 ML VIAL IVPUSH SCH (02:00)
[2019-07-10 07:28] LABS: BASO % 0.5 % (0-2.0); EOS % 1.6 % (0-4.5); HEMATOCRIT 38.6 % (32.4-45.2); LYMPH % 42.3 % (8-40); MCH 29.7 pg (25.7-33.7); MCHC 33.6 g/dl (32.0-36.0); MEAN CELL VOLUME 88.4 fl (80-96); MEAN PLT VOLUME 8.3 fl (7.5-11.1); MONO % 6.3 % (3.8-10.2); NEUT % 49.3 % (42.8-82.8); PLATELET COUNT 229 K/MM3 (134-434); RBC 4.36 M/mm3 (3.60-5.2); RDW 15.3 % (11.6-15.6); WHITE BLOOD COUNT 6.8 K/mm3 (4.0-10.0)
[2019-07-10 07:55] LABS: ALBUMIN 2.8 g/dl (3.4-5.0); BILIRUBIN,TOTAL 0.7 mg/dL (0.2-1); BLOOD UREA NITROGEN 17.6 mg/dL (7-18); CALCIUM 8.7 mg/dL (8.5-10.1); CREATININE 0.9 mg/dL (0.55-1.3); POTASSIUM 3.3 mmol/L (3.5-5.1)
[2019-07-10] MEDS: KETOROLAC TROMETHAMINE 30 MG/1 ML VIAL IVPUSH PRN (09:00)
[2019-07-10] MEDS ORDERED: PT OWN MED DRAWER 7, Y5N ONE (09:15)
[2019-07-10] MEDS: metoPROLOL SUCCINATE 25 MG TAB.SR.24H (FP) PO SCH (09:20)
[2019-07-10] MEDS: amLODIPine BESYLATE 10 MG TABLET (FP) PO SCH (09:20)
[2019-07-10] MEDS: ASPIRIN COATED 81 MG TABLET.EC PO SCH (09:20)
[2019-07-10] MEDS: LISINOPRIL 20 MG TABLET (FP) PO SCH (09:20)
[2019-07-10] MEDS: levETIRAcetam 500 MG TABLET (FP) PO SCH ×2 (09:20→22:07)
[2019-07-10] MEDS: SERTRALINE HCL 50 MG TABLET (FP) PO SCH (09:21)
[2019-07-10] MEDS: HEPARIN NA (PORCINE) 5,000 UNITS/ML 1ML VIAL SQ SCH ×2 (09:21→22:07)
[2019-07-10] MEDS ORDERED: MORPHINE SULFATE 2 MG/ML VIAL IVPUSH ONE ×3 (09:45→13:45)
[2019-07-10] MEDS ORDERED: PATIENT'S OWN MEDICATION (NON-FORMULARY) (Lisinopril [Prinivil -] 40 MG) PO SCH (10:00)
--- NOTE | 2019-07-10 10:07 | EKG ---
Test Reason : Blood Pressure : / mmHG Vent. Rate : 067 BPM Atrial Rate : 067 BPM P-R Int : 210 ms QRS Dur : 068 ms QT Int : 432 ms P-R-T Axes : 033 000 056 degrees QTc Int : 456 ms POOR DATA QUALITY, INTERPRETATION MAY BE ADVERSELY AFFECTED SINUS RHYTHM WITH 1ST DEGREE A-V BLOCK OTHERWISE NORMAL ECG WHEN COMPARED WITH ECG OF 09-DEC-2017 16:39, NO SIGNIFICANT CHANGE WAS FOUND Confirmed by Eliane Dumont ([id number]) on 07/10/2019 10:07:17 AM Referred By: Confirmed By:Eliane Dumont
[2019-07-10] MEDS ORDERED: POTASSIUM CHLORIDE TABS 20 MEQ TABLET.ER (FP) PO ONE (12:33)
--- NOTE | 2019-07-10 12:49 | CON.GU ---
Consult Consult Specialty:: Urology Reason for Consultation:: Right Renal colic - History of Present Illness Chief Complaint: Pain Rt. Flank - History Source History Provided By: Patient Limitations to Obtaining History: No Limitations - Past Medical History Cardio/Vascular: Yes: HTN Gastrointestinal: Yes: GERD (?) Renal/: Yes: Renal Calculi (Hx of) ...: No Psych: Yes: Anxiety (?) Musculoskeletal: Yes: Osteoarthritis (see HPI) - Past Surgical History Past Surgical History: Yes: Appendectomy, Hernia Repair (abd wall) - Alcohol/Substance Use Hx Alcohol Use: No History of Substance Use: reports: None - Smoking History Smoking history: Current every day smoker Have you smoked in the past 12 months: No Aproximately how many cigarettes per day: 8 - Social History ADL: Independent History of Recent Travel: No Home Medications - Allergies Allergies/Adverse Reactions: Allergies Allergy/AdvReac Type Severity Reaction Status Date / Time No Known Allergies Allergy Verified 07/09/19 09:18 - Home Medications Home Medications: Ambulatory Orders Losartan/Hydrochlorothiazide [Losartan-Hctz 100-25 mg Tablet] 1 each PO BID 08/06 Sertraline HCl [Zoloft -] 50 mg PO DAILY #30 tablet 06/12/15 Alprazolam [Xanax] 0.5 mg PO DAILY PRN 03/19/16 Amlodipine Besylate 10 mg PO DAILY 12/09/17 Aspirin [Aspirin EC] 81 mg PO DAILY 12/09/17 Ciprofloxacin [Cipro -] 250 mg PO BID #6 tablet 12/09/17 Dextromethorphan HBr/Quinidine [Nuedexta 20-10 mg Capsule] 1 each PO BID Famotidine 20 mg PO DAILY 12/09/17 Lisinopril [Prinivil -] 40 mg PO DAILY 12/09/17 Metoprolol Succinate [Toprol Xl] 25 mg PO DAILY 12/09/17 Quetiapine Fumarate [Seroquel -] 25 mg PO HS 12/09/17 levETIRAcetam [Keppra -] 500 mg PO BID 12/09/17 traZODone HCL [Trazodone HCl] 50 mg PO HS 12/09/17 Methocarbamol [Robaxin -] 500 mg PO TID #30 tablet 12/10/17 Physical Exam- Vital Signs: Vital Signs Temperature 98.6 F 07/10/19 04:00 Pulse Rate 81 07/10/19 04:00 Respiratory Rate 20 07/10/19 04:00 Blood Pressure 159/93 07/10/19 04:00 O2 Sat by Pulse Oximetry (%) 94 L 07/09/19 23:53 Labs: CBC, BMP 07/10/19 06:50 07/10/19 06:50 Assessment/Plan 63 year old female admitted with typical symptoms right renal colic. Pt. also gives hx of renal calculous disease which required intervention 5 years ago. Pain started yesterday and was seen in [facility]. She required mulriple pain medications. She feels better today. Ct Scan and renal sono reports reviwed. No evidence of any obstructing calculus. Possibility that she passed a calculus which caused the symptomes is there. Atpresent will just observe. Thank you
--- NOTE | 2019-07-10 14:33 | PN ---
Progress Note (short form) - Note Progress Note: GI CONSULT DICTATED
--- NOTE | 2019-07-10 15:04 | CONS ---
GASTROINTESTINAL CONSULTATION DATE OF CONSULTATION: DATE OF DICTATION: 07/10/2019 HISTORY: Patient is a 63-year-old female past medical history of hypertension, anemia, renal calculi, CVA, chronic left knee pain who presented to the emergency room with 3-day history of right flank abdominal pain radiating into the right side of the abdomen. These symptoms are similar to previous episodes of renal calculi and renal colic. She denies any nausea, vomiting. She does admit to chills earlier in the day. No diarrhea, constipation, hematochezia, or melena. She has had an upper endoscopy and colonoscopy approximately [address] [facility], [place]. PAST MEDICAL AND SURGICAL HISTORY: As listed in the HPI with the addition of an appendectomy and a hernia repair. SOCIAL HISTORY: Smokes daily. No alcohol use. No drug abuse. FAMILY HISTORY: No history of GI or gynecological malignancy. ALLERGIES: No known drug allergies. HOME MEDICATIONS: Reviewed include losartan, hydrochlorothiazide, Zoloft, Xanax, amlodipine, aspirin, lisinopril, metoprolol, Seroquel, Keppra, trazodone. REVIEW OF SYSTEMS: As per the HPI. PHYSICAL EXAMINATION: Vital Signs: Temperature 98, pulse 61, blood pressure 176/86, respiratory rate 12, saturation of oxygen 94% on room air. General: In no acute distress. HEENT: Anicteric sclerae. Cardiovascular: S1, S2. Regular rate and rhythm. Lungs: Bilaterally clear to auscultation. Abdomen: Tender in the right flank. Otherwise, within normal limits. Normal bowel sounds. Extremities: No edema. LABORATORIES: White blood cell count 6.8, hemoglobin 13, hematocrit 38, MCV 88, platelet count 229. Sodium 142, potassium 3.3, BUN 17, creatinine 0.9, total bilirubin 0.7, AST 73, ALT 100. Alkaline phosphatase 113, albumin 2.8. Previous AST 26, ALT 41. Blood 1+ in the urine. Cultures are negative. She had abdomen and pelvis CT scan with contrast. Revealed no evidence of an acute intra-abdominal process and no renal calculi, hydronephrosis. Gallbladder is absent. Hepatic and splenic parenchyma are within normal limits. No biliary ductal or pancreatic duct dilation. Urinary bladder is also unremarkable. IMPRESSION: Right-sided abdominal pain most consistent with renal colic. Perhaps she passed a stone. Currently with a small elevation in her liver enzymes, which may be medication induced or secondary to nonalcoholic fatty liver disease. PLAN: For completeness, we will order serologies for chronic disease, trend her liver tests daily. We will hospitalize. Urology consultation. Her abdominal sonogram, which was done on the was within normal limits. If her urology workup turns out to be negative, she would benefit from an outpatient endoscopic evaluation. DO RY SHRESTHA/[id number]
[2019-07-10] MEDS: DEXTROSE 5%-0.45% SALINE 1,000 ML IV SCH ×2 (15:44→20:01)
[2019-07-10] MEDS: MORPHINE SULFATE 2 MG/ML VIAL IVPUSH PRN (20:02)
[2019-07-10] MEDS: QUEtiapine FUMARATE 25 MG TABLET PO SCH (22:07)
--- NOTE | 2019-07-10 22:39 | PN ---
Progress Note, Physician History of Present Illness: Pt still complains of Rt flank/abdominal pain - Current Medication List Current Medications: Active Medications Amlodipine Besylate (Norvasc -) 10 mg PO DAILY [facility] Last Admin: 07/10/19 09:20 Dose: 10 mg Aspirin (Ecotrin -) 81 mg PO DAILY [facility] Last Admin: 07/10/19 09:20 Dose: 81 mg Heparin Sodium (Porcine) (Heparin -) 5,000 unit SQ BID [facility] Last Admin: 07/10/19 22:07 Dose: 5,000 unit Dextrose/Sodium Chloride (D5-1/2ns -) 1,000 mls @ 75 mls/hr IV ASDIR [facility] Last Admin: 07/10/19 20:01 Dose: 75 mls/hr Ketorolac Tromethamine (Toradol Injection -) 30 mg IVPUSH Q6H PRN PRN Reason: PAIN LEVEL 6-10 Stop: 07/15/19 00:49 Last Admin: 07/10/19 09:00 Dose: 30 mg Levetiracetam (Keppra -) 500 mg PO BID [facility] Last Admin: 07/10/19 22:07 Dose: 500 mg Lisinopril (Prinivil) 40 mg PO DAILY [facility] Last Admin: 07/10/19 09:20 Dose: 40 mg Metoprolol Succinate (Toprol Xl -) 25 mg PO DAILY [facility] Last Admin: 07/10/19 09:20 Dose: 25 mg Morphine Sulfate (Morphine Sulfate) 2 mg IVPUSH Q6H PRN PRN Reason: PAIN LEVEL 6-10 Last Admin: 07/10/19 20:02 Dose: 2 mg Quetiapine Fumarate (Seroquel -) 25 mg PO HS [facility] Last Admin: 07/10/19 22:07 Dose: 25 mg Sertraline HCl (Zoloft -) 50 mg PO DAILY [facility] Last Admin: 07/10/19 09:21 Dose: 50 mg - Objective Vital Signs: Vital Signs Temperature 98.4 F 07/10/19 16:30 Pulse Rate 67 07/10/19 16:30 Respiratory Rate 20 07/10/19 16:30 Blood Pressure 153/96 07/10/19 16:30 O2 Sat by Pulse Oximetry (%) 94 L 07/09/19 23:53 Neck: Yes: WNL, Supple Cardiovascular: Yes: WNL, Regular Rate and Rhythm Respiratory: Yes: WNL, Regular, CTA Bilaterally Gastrointestinal: Yes: Other ((+) pain on palpation rt abdomen (-) guarding/ rebound) Labs: CBC, BMP 07/10/19 06:50 07/10/19 06:50 Problem List - Problems (1) Abdominal pain Assessment/Plan: Unclear etiology Advance diet CT scan abd/pelvis did not show any acute pathology Will repeat CT scan abd/pelvis bc pain not improving Spoke to pt about possibilty of muscular skeletal origin of pain CT scan LS spine showed compression fx L2/L3 Will get NSG consult consult noted :Possibilty of passing stone GI consult noted Code(s): R10.9 - UNSPECIFIED ABDOMINAL PAIN Qualifiers: Abdominal location: unspecified location Qualified Code(s): R10.9 - Unspecified abdominal pain (2) Elevated LFTs Assessment/Plan: Cont to trend LFT's US abd did not show any acute pathology Code(s): R94.5 - ABNORMAL RESULTS OF LIVER FUNCTION STUDIES (3) HTN (hypertension) Assessment/Plan: BP stable Cont norvasc/metoprolol/lisinopril/losartan/hctz Code(s): I10 - ESSENTIAL (PRIMARY) HYPERTENSION Qualifiers: Hypertension type: essential hypertension Qualified Code(s): I10 - Essential (primary) hypertension (4) HLD (hyperlipidemia) Code(s): E78.5 - HYPERLIPIDEMIA, UNSPECIFIED (5) Intraparenchymal hemorrhage of brain Assessment/Plan: Cont keppra Code(s): I61.9 - NONTRAUMATIC INTRACEREBRAL HEMORRHAGE, UNSPECIFIED
[2019-07-11] MEDS: MORPHINE SULFATE 2 MG/ML VIAL IVPUSH PRN ×3 (05:39→19:54)
[2019-07-11 08:39] LABS: BASO % 0.4 % (0-2.0); EOS % 2.3 % (0-4.5); HEMATOCRIT 38.8 % (32.4-45.2); HEMOGLOBIN 13.1 GM/dL (10.7-15.3); LYMPH % 31.8 % (8-40); MCH 29.5 pg (25.7-33.7); MCHC 33.7 g/dl (32.0-36.0); MEAN CELL VOLUME 87.4 fl (80-96); MEAN PLT VOLUME 8.3 fl (7.5-11.1); MONO % 6.4 % (3.8-10.2); NEUT % 59.1 % (42.8-82.8); PLATELET COUNT 216 K/MM3 (134-434); RBC 4.44 M/mm3 (3.60-5.2); RDW 14.9 % (11.6-15.6); WHITE BLOOD COUNT 5.9 K/mm3 (4.0-10.0)
[2019-07-11 09:01] LABS: ALBUMIN 2.9 g/dl (3.4-5.0); BILIRUBIN,TOTAL 0.5 mg/dL (0.2-1); BLOOD UREA NITROGEN 14.9 mg/dL (7-18); CALCIUM 8.6 mg/dL (8.5-10.1); CREATININE 0.8 mg/dL (0.55-1.3); POTASSIUM 3.6 mmol/L (3.5-5.1)
[2019-07-11] MEDS ORDERED: PT OWN MED DRAWER 7, Y5N ONE ×2 (09:52→23:06)
[2019-07-11] MEDS: amLODIPine BESYLATE 10 MG TABLET (FP) PO SCH (10:00)
[2019-07-11] MEDS: levETIRAcetam 500 MG TABLET (FP) PO SCH ×2 (10:00→21:52)
[2019-07-11] MEDS: ASPIRIN COATED 81 MG TABLET.EC PO SCH (10:00)
[2019-07-11] MEDS: SERTRALINE HCL 50 MG TABLET (FP) PO SCH (10:01)
[2019-07-11] MEDS: HEPARIN NA (PORCINE) 5,000 UNITS/ML 1ML VIAL SQ SCH ×2 (10:01→21:53)
[2019-07-11] MEDS: LISINOPRIL 20 MG TABLET (FP) PO SCH (10:01)
[2019-07-11] MEDS: metoPROLOL SUCCINATE 25 MG TAB.SR.24H (FP) PO SCH (10:01)
--- NOTE | 2019-07-11 15:08 | CONSULT ---
Consult Consult Specialty:: PAIN MANAGENENT Reason for Consultation:: aBSOMINAL PAIN - History of Present Illness Chief Complaint: BACK PAIN / aBDOMINAL PAIN History of Present Illness: 63 YR OLD FEMALE C/O UPPER BACK AND ABDOMINAL PAIN 03/02 . She has h/o Renal colic - Past Medical History Cardio/Vascular: Yes: HTN Gastrointestinal: Yes: GERD (?) Renal/: Yes: Renal Calculi (Hx of) ...: No Psych: Yes: Anxiety (?) Musculoskeletal: Yes: Osteoarthritis (see HPI) - Past Surgical History Past Surgical History: Yes: Appendectomy, Hernia Repair (abd wall) - Alcohol/Substance Use Hx Alcohol Use: No History of Substance Use: reports: None - Smoking History Smoking history: Current every day smoker Have you smoked in the past 12 months: No Aproximately how many cigarettes per day: 8 - Social History ADL: Independent History of Recent Travel: No Home Medications - Allergies Allergies/Adverse Reactions: Allergies Allergy/AdvReac Type Severity Reaction Status Date / Time No Known Allergies Allergy Verified 07/09/19 09:18 - Home Medications Home Medications: Ambulatory Orders Losartan/Hydrochlorothiazide [Losartan-Hctz 100-25 mg Tablet] 1 each PO BID 08/06 Sertraline HCl [Zoloft -] 50 mg PO DAILY #30 tablet 06/12/15 Alprazolam [Xanax] 0.5 mg PO DAILY PRN 03/19/16 Amlodipine Besylate 10 mg PO DAILY 12/09/17 Aspirin [Aspirin EC] 81 mg PO DAILY 12/09/17 Ciprofloxacin [Cipro -] 250 mg PO BID #6 tablet 12/09/17 Dextromethorphan HBr/Quinidine [Nuedexta 20-10 mg Capsule] 1 each PO BID Famotidine 20 mg PO DAILY 12/09/17 Lisinopril [Prinivil -] 40 mg PO DAILY 12/09/17 Metoprolol Succinate [Toprol Xl] 25 mg PO DAILY 12/09/17 Quetiapine Fumarate [Seroquel -] 25 mg PO HS 12/09/17 levETIRAcetam [Keppra -] 500 mg PO BID 12/09/17 traZODone HCL [Trazodone HCl] 50 mg PO HS 12/09/17 Methocarbamol [Robaxin -] 500 mg PO TID #30 tablet 12/10/17 Review of Systems - Review of Systems Constitutional: reports: No Symptoms Eyes: reports: No Symptoms HENT: reports: No Symptoms Neck: reports: No Symptoms Cardiovascular: reports: No Symptoms Respiratory: reports: No Symptoms Gastrointestinal: reports: No Symptoms Genitourinary: reports: No Symptoms, Flank Pain Musculoskeletal: reports: Back Pain (Upper back) Integumentary: reports: No Symptoms Neurological: reports: No Symptoms Hematology/Lymphatic: reports: No Symptoms Psychiatric: reports: No Symptoms Pain Intensity: 10 Physical Exam Vital Signs: Vital Signs Temperature 98.4 F 07/11/19 09:40 Pulse Rate 67 07/11/19 09:40 Respiratory Rate 20 07/11/19 09:40 Blood Pressure 184/89 H 07/11/19 09:40 O2 Sat by Pulse Oximetry (%) 95 07/10/19 21:00 Constitutional: Yes: Well Nourished Eyes: Yes: WNL HENT: Yes: WNL Neck: Yes: WNL Musculoskeletal: Yes: Other (Multiple tenderness + t1 - T12 , Paratharocic muscles adpasm and tender , Interscapular muscles Tender and sapsm + on Right) Extremities: Yes: WNL Edema: No Neurological: Yes: WNL ...Motor Strength: WNL Psychiatric: Yes: WNL Labs: CBC, BMP 07/11/19 08:05 07/11/19 08:05 Current Medications Generic Name Dose Route Start Last Admin Trade Name Freq PRN Reason Stop Dose Admin Amlodipine Besylate 10 mg 07/10/19 10:00 07/11/19 10:00 Norvasc - PO 10 mg DAILY KATI Administration Aspirin 81 mg 07/10/19 10:00 07/11/19 10:00 Ecotrin - PO 81 mg DAILY KATI Administration Heparin Sodium (Porcine) 5,000 unit 07/09/19 22:00 07/11/19 10:01 Heparin - SQ 5,000 unit BID KATI Administration Ketorolac Tromethamine 30 mg 07/10/19 00:50 07/10/19 09:00 Toradol Injection - IVPUSH 07/15/19 00:49 30 mg Q6H PRN Administration PAIN LEVEL 6-10 Levetiracetam 500 mg 07/09/19 22:00 07/11/19 10:00 Keppra - PO 500 mg BID KATI Administration Lisinopril 40 mg 07/10/19 10:00 07/11/19 10:01 Prinivil PO 40 mg DAILY KATI Administration Metoprolol Succinate 25 mg 07/10/19 10:00 07/11/19 10:01 Toprol Xl - PO 25 mg DAILY KATI Administration Morphine Sulfate 2 mg 07/10/19 19:29 07/11/19 14:52 Morphine Sulfate IVPUSH 2 mg Q6H PRN Administration PAIN LEVEL 6-10 Quetiapine Fumarate 25 mg 07/09/19 22:00 07/10/19 22:07 Seroquel - PO 25 mg HS KATI Administration Sertraline HCl 50 mg 07/10/19 10:00 07/11/19 10:01 Zoloft - PO 50 mg DAILY KATI Administration Problem List - Problems (1) Thoracic spine pain Code(s): M54.6 - PAIN IN THORACIC SPINE (2) Myofascial pain syndrome of thoracic spine Code(s): M79.18 - MYALGIA, OTHER SITE Assessment/Plan Discuissed in detail and answered all the questions 1. Continue current medication 2. She can have CT - T^ spine 3. Lidern patch 4, Flexeril 10 mg PO TiD 5. physical therapy/ Warm pack spoke with Dr Strange. Thanks for kind referral
[2019-07-11] MEDS ORDERED: CYCLOBENZAPRINE HCL 10 MG TABLET (FP) PO PRN (15:12)
--- NOTE | 2019-07-11 15:20 | PN.GI ---
GI Progress Note Subjective: No acute events Patient awake. Complains of right mid back pain radiating to the lower back No abdominal pain Had loose BM's after PO contrast today, otherwise no diarrhea. CT scan was unremarkable - Objective Vital Signs: Vital Signs Temperature 98.4 F 07/11/19 09:40 Pulse Rate 67 07/11/19 09:40 Respiratory Rate 20 07/11/19 09:40 Blood Pressure 184/89 H 07/11/19 09:40 O2 Sat by Pulse Oximetry (%) 95 07/10/19 21:00 Constitutional: Calm Eyes: No: Sclera Icterus Cardiovascular: Yes: Regular Rate and Rhythm Respiratory: Yes: CTA Bilaterally Gastrointestinal Inspection: No: Distention ...Auscultate: Yes: Normoactive Bowel Sounds ...Palpate: Yes: Soft. No: Hepatomegaly, Splenomegaly, Tenderness ...Percussion: No: Tympanitic Musculoskeletal: Yes: Back Pain (right sided mid / lower back pain with palpation along right posterior ribs) Edema: No (No LE edema) Neurological: Yes: Alert Labs: CBC, BMP 07/11/19 08:05 07/11/19 08:05 Assessment/Plan Back pain: Reproducible upon palpation in the right lower ribs and mid lower back. ? musculoskelatal in origin. ? renal in origin continued work-up per PMD LFTs improving. avoid hepatotoxic agents, monitor LFTs
[2019-07-11] MEDS: LIDOCAINE 5% TOPICAL PATCH TP SCH (16:20)
--- NOTE | 2019-07-11 19:37 | PN ---
Progress Note, Physician - Current Medication List Current Medications: Active Medications Amlodipine Besylate (Norvasc -) 10 mg PO DAILY [facility] Last Admin: 07/11/19 10:00 Dose: 10 mg Aspirin (Ecotrin -) 81 mg PO DAILY [facility] Last Admin: 07/11/19 10:00 Dose: 81 mg Cyclobenzaprine HCl (Flexeril -) 10 mg PO TID PRN PRN Reason: MUSCLE SPASMS Last Admin: 07/11/19 16:37 Dose: 10 mg Heparin Sodium (Porcine) (Heparin -) 5,000 unit SQ BID [facility] Last Admin: 07/11/19 10:01 Dose: 5,000 unit Ketorolac Tromethamine (Toradol Injection -) 30 mg IVPUSH Q6H PRN PRN Reason: PAIN LEVEL 6-10 Stop: 07/15/19 00:49 Last Admin: 07/10/19 09:00 Dose: 30 mg Levetiracetam (Keppra -) 500 mg PO BID [facility] Last Admin: 07/11/19 10:00 Dose: 500 mg Lidocaine (Lidoderm Patch -) 1 patch TP DAILY [facility] Last Admin: 07/11/19 16:20 Dose: 1 patch Lisinopril (Prinivil) 40 mg PO DAILY [facility] Last Admin: 07/11/19 10:01 Dose: 40 mg Metoprolol Succinate (Toprol Xl -) 25 mg PO DAILY [facility] Last Admin: 07/11/19 10:01 Dose: 25 mg Miscellaneous (Lidoderm Patch Removal) 1 each MC DAILY@2200 [facility] Morphine Sulfate (Morphine Sulfate) 2 mg IVPUSH Q6H PRN PRN Reason: PAIN LEVEL 6-10 Last Admin: 07/11/19 14:52 Dose: 2 mg Quetiapine Fumarate (Seroquel -) 25 mg PO HS [facility] Last Admin: 07/10/19 22:07 Dose: 25 mg Sertraline HCl (Zoloft -) 50 mg PO DAILY [facility] Last Admin: 07/11/19 10:01 Dose: 50 mg - Objective Vital Signs: Vital Signs Temperature 98.1 F 07/11/19 14:00 Pulse Rate 68 07/11/19 14:00 Respiratory Rate 20 07/11/19 14:00 Blood Pressure 174/91 H 07/11/19 14:00 O2 Sat by Pulse Oximetry (%) 95 07/10/19 21:00 Labs: CBC, BMP 07/11/19 08:05 07/11/19 08:05 Problem List - Problems (1) Abdominal pain Code(s): R10.9 - UNSPECIFIED ABDOMINAL PAIN Qualifiers: Abdominal location: unspecified location Qualified Code(s): R10.9 - Unspecified abdominal pain (2) Elevated LFTs Code(s): R94.5 - ABNORMAL RESULTS OF LIVER FUNCTION STUDIES (3) HTN (hypertension) Code(s): I10 - ESSENTIAL (PRIMARY) HYPERTENSION Qualifiers: Hypertension type: essential hypertension Qualified Code(s): I10 - Essential (primary) hypertension (4) HLD (hyperlipidemia) Code(s): E78.5 - HYPERLIPIDEMIA, UNSPECIFIED (5) Intraparenchymal hemorrhage of brain Code(s): I61.9 - NONTRAUMATIC INTRACEREBRAL HEMORRHAGE, UNSPECIFIED
[2019-07-11] MEDS: QUEtiapine FUMARATE 25 MG TABLET PO SCH (21:52)
[2019-07-11] MEDS: LIDOCAINE PATCH REMOVAL MC SCH (21:54)
[2019-07-12] MEDS: MORPHINE SULFATE 2 MG/ML VIAL IVPUSH PRN ×3 (06:19→19:31)
[2019-07-12 08:31] LABS: ALBUMIN 3.3 g/dl (3.4-5.0); BILIRUBIN,TOTAL 0.5 mg/dL (0.2-1); BLOOD UREA NITROGEN 17.7 mg/dL (7-18); CALCIUM 8.9 mg/dL (8.5-10.1); CREATININE 0.9 mg/dL (0.55-1.3); POTASSIUM 3.6 mmol/L (3.5-5.1); TOT PROT 6.8 g/dl (6.4-8.2)
[2019-07-12] MEDS: levETIRAcetam 500 MG TABLET (FP) PO SCH ×2 (10:16→21:03)
[2019-07-12] MEDS: LISINOPRIL 20 MG TABLET (FP) PO SCH (10:16)
[2019-07-12] MEDS: metoPROLOL SUCCINATE 25 MG TAB.SR.24H (FP) PO SCH (10:16)
[2019-07-12] MEDS: amLODIPine BESYLATE 10 MG TABLET (FP) PO SCH (10:16)
[2019-07-12] MEDS: SERTRALINE HCL 50 MG TABLET (FP) PO SCH (10:16)
[2019-07-12] MEDS: LIDOCAINE 5% TOPICAL PATCH TP SCH ×2 (10:17→19:16)
[2019-07-12] MEDS: HEPARIN NA (PORCINE) 5,000 UNITS/ML 1ML VIAL SQ SCH ×2 (10:17→21:03)
[2019-07-12] MEDS: ASPIRIN COATED 81 MG TABLET.EC PO SCH (10:18)
[2019-07-12] MEDS: KETOROLAC TROMETHAMINE 30 MG/1 ML VIAL IVPUSH PRN (10:32)
--- NOTE | 2019-07-12 12:21 | CONSULT ---
Consult - text type - Consultation Consultation Note: NEUROSURGERY CONSULTATION Shelby Ramires is a 63 year old female with a past medical history notable for HTN, anemia, kidney stones, CVA, and chronic left knee pain, who presents to the ER with 3 days of constant right-sided flank pain with radiation to the right-side abdomen. As per patient, her symptoms are similar to previous kidney stones, prompting her arrival to the ED. Pt given multiple doses of pain meds w/ out relief. CT Lumbar spine reveals a compression fracture of L2 which is similar in morphology to prior imaging in 2018. There is degenerative change at L5S1. Although the fracture is largely unchanged, further settling is a possibility. MRI to assess fracture progression/acuity is contraindicated due to placement of aneurysm clips via Left Pterional craniotomy which is well healed. Pain Management evaluation from Dr. Mcgovern is appreciated. I agree with use of conservative and possibly injection based treatment as a next line of care. LSO may afford some comfort from mechanical discomfort. If Heat/cold modalities and local treatment are not effective, injections may be considered. Surgical stabilization would only be reserved for pain which persists and progresses despite all conservative efforts. - LSO to treat presumed fractured settling - Heat and Cold modalities and conservative regimen as described by Dr. Mcgovern - Consider injections if pain persists - GI/DVT prophylaxis
--- NOTE | 2019-07-12 20:13 | PN ---
Progress Note (short form) - Note Progress Note: Pt seen/examined at bedside, still with right sided flank pain, no new complaints. Denies nausea/vomiting or fever/chills. On examination: Pt sitting up, appear comfortable Abd soft, tender at right flank on palpation, non distended Labs reviewed. CBC, BMP 07/11/19 08:05 07/12/19 06:55 63yo female h/o HTN, renal stones with right sided flank pain, no obvious GI or renal pathology on US or CT imaging. LFTs improving. Exact etiology unclear ?musculoskeletal component. Neurosurgery consulted.
[2019-07-12] MEDS ORDERED: MORPHINE SULFATE 2 MG/ML VIAL IVPUSH ONE (20:27)
[2019-07-12] MEDS: LIDOCAINE PATCH REMOVAL MC SCH (21:03)
[2019-07-12] MEDS: QUEtiapine FUMARATE 25 MG TABLET PO SCH (21:03)
--- NOTE | 2019-07-12 23:11 | PN ---
Progress Note, Physician History of Present Illness: Pt still complains of pain however she seems to be resting comfortably - Current Medication List Current Medications: Active Medications Amlodipine Besylate (Norvasc -) 10 mg PO DAILY [facility] Last Admin: 07/12/19 10:16 Dose: 10 mg Aspirin (Ecotrin -) 81 mg PO DAILY [facility] Last Admin: 07/12/19 10:18 Dose: 81 mg Cyclobenzaprine HCl (Flexeril -) 10 mg PO TID PRN PRN Reason: MUSCLE SPASMS Last Admin: 07/11/19 16:37 Dose: 10 mg Heparin Sodium (Porcine) (Heparin -) 5,000 unit SQ BID [facility] Last Admin: 07/12/19 21:03 Dose: 5,000 unit Ketorolac Tromethamine (Toradol Injection -) 30 mg IVPUSH Q6H PRN PRN Reason: PAIN LEVEL 6-10 Stop: 07/15/19 00:49 Last Admin: 07/12/19 10:32 Dose: 30 mg Levetiracetam (Keppra -) 500 mg PO BID [facility] Last Admin: 07/12/19 21:03 Dose: 500 mg Lidocaine (Lidoderm Patch -) 1 patch TP DAILY [facility] Last Admin: 07/12/19 19:16 Dose: Not Given Lisinopril (Prinivil) 40 mg PO DAILY [facility] Last Admin: 07/12/19 10:16 Dose: 40 mg Metoprolol Succinate (Toprol Xl -) 25 mg PO DAILY [facility] Last Admin: 07/12/19 10:16 Dose: 25 mg Miscellaneous (Lidoderm Patch Removal) 1 each MC DAILY@2200 [facility] Last Admin: 07/12/19 21:03 Dose: 1 each Quetiapine Fumarate (Seroquel -) 25 mg PO HS [facility] Last Admin: 07/12/19 21:03 Dose: 25 mg Sertraline HCl (Zoloft -) 50 mg PO DAILY [facility] Last Admin: 07/12/19 10:16 Dose: 50 mg Tramadol HCl (Ultram -) 50 mg PO Q8H PRN PRN Reason: PAIN LEVEL 6-10 - Objective Vital Signs: Vital Signs Temperature 98.2 F 07/12/19 21:12 Pulse Rate 69 07/12/19 21:12 Respiratory Rate 18 07/12/19 21:12 Blood Pressure 140/79 07/12/19 21:12 O2 Sat by Pulse Oximetry (%) 95 07/11/19 21:00 Neck: Yes: WNL, Supple Cardiovascular: Yes: WNL, Regular Rate and Rhythm Respiratory: Yes: WNL, Regular, CTA Bilaterally Gastrointestinal: Yes: WNL, Normal Bowel Sounds, Soft, Abdomen, Obese Labs: CBC, BMP 07/11/19 08:05 07/12/19 06:55 Problem List - Problems (1) Abdominal pain Assessment/Plan: Unclear etiology Probable muscular skeletal Pt tolerating diet Repeat CT scan abd/pelvis did not show any acute pathology CT scan LS spine showed compression fx L2/L3 NSG consult appreciated Reconsult pain management for possible injection Cont PT DC morphine however pt requesting higher dose Pt encouraged OOB Spoke to pt's who states that pt is sedentary at home Code(s): R10.9 - UNSPECIFIED ABDOMINAL PAIN Qualifiers: Abdominal location: unspecified location Qualified Code(s): R10.9 - Unspecified abdominal pain (2) Elevated LFTs Assessment/Plan: Cont to trend LFT's US abd did not show any acute pathology LFT's decreased Code(s): R94.5 - ABNORMAL RESULTS OF LIVER FUNCTION STUDIES (3) HTN (hypertension) Assessment/Plan: BP stable Cont norvasc/metoprolol/lisinopril/losartan/hctz Code(s): I10 - ESSENTIAL (PRIMARY) HYPERTENSION Qualifiers: Hypertension type: essential hypertension Qualified Code(s): I10 - Essential (primary) hypertension (4) HLD (hyperlipidemia) Code(s): E78.5 - HYPERLIPIDEMIA, UNSPECIFIED (5) Intraparenchymal hemorrhage of brain Assessment/Plan: Cont keppra Code(s): I61.9 - NONTRAUMATIC INTRACEREBRAL HEMORRHAGE, UNSPECIFIED
[2019-07-13] MEDS: levETIRAcetam 500 MG TABLET (FP) PO SCH ×2 (10:41→21:29)
[2019-07-13] MEDS: metoPROLOL SUCCINATE 25 MG TAB.SR.24H (FP) PO SCH (10:41)
[2019-07-13] MEDS: LISINOPRIL 20 MG TABLET (FP) PO SCH (10:41)
[2019-07-13] MEDS: amLODIPine BESYLATE 10 MG TABLET (FP) PO SCH (10:41)
[2019-07-13] MEDS: traMADol HCL 50 MG TABLET PO PRN ×2 (10:42→19:15)
[2019-07-13] MEDS: SERTRALINE HCL 50 MG TABLET (FP) PO SCH (10:42)
[2019-07-13] MEDS: ASPIRIN COATED 81 MG TABLET.EC PO SCH (10:43)
[2019-07-13] MEDS: HEPARIN NA (PORCINE) 5,000 UNITS/ML 1ML VIAL SQ SCH ×2 (10:43→21:29)
[2019-07-13] MEDS: LIDOCAINE 5% TOPICAL PATCH TP SCH (10:44)
--- NOTE | 2019-07-13 19:38 | PN ---
Progress Note (short form) - Note Progress Note: Continue to monitor LFTs, avoid hepatotoxic agents. If seroquel at night is being used as a sleeping aid, discontinue it and avoid hepatotoxic agents.
[2019-07-13] MEDS: QUEtiapine FUMARATE 25 MG TABLET PO SCH (21:29)
[2019-07-13] MEDS: LIDOCAINE PATCH REMOVAL MC SCH (21:32)
--- NOTE | 2019-07-13 23:29 | PN ---
Progress Note, Physician - Current Medication List Current Medications: Active Medications Amlodipine Besylate (Norvasc -) 10 mg PO DAILY [facility] Last Admin: 07/13/19 10:41 Dose: 10 mg Aspirin (Ecotrin -) 81 mg PO DAILY [facility] Last Admin: 07/13/19 10:43 Dose: 81 mg Cyclobenzaprine HCl (Flexeril -) 10 mg PO TID PRN PRN Reason: MUSCLE SPASMS Last Admin: 07/11/19 16:37 Dose: 10 mg Heparin Sodium (Porcine) (Heparin -) 5,000 unit SQ BID [facility] Last Admin: 07/13/19 21:29 Dose: 5,000 unit Ketorolac Tromethamine (Toradol Injection -) 30 mg IVPUSH Q6H PRN PRN Reason: PAIN LEVEL 6-10 Stop: 07/15/19 00:49 Last Admin: 07/12/19 10:32 Dose: 30 mg Levetiracetam (Keppra -) 500 mg PO BID [facility] Last Admin: 07/13/19 21:29 Dose: 500 mg Lidocaine (Lidoderm Patch -) 1 patch TP DAILY [facility] Last Admin: 07/13/19 10:44 Dose: Not Given Lisinopril (Prinivil) 40 mg PO DAILY [facility] Last Admin: 07/13/19 10:41 Dose: 40 mg Metoprolol Succinate (Toprol Xl -) 25 mg PO DAILY [facility] Last Admin: 07/13/19 10:41 Dose: 25 mg Miscellaneous (Lidoderm Patch Removal) 1 each MC DAILY@2200 [facility] Last Admin: 07/13/19 21:32 Dose: 1 each Quetiapine Fumarate (Seroquel -) 25 mg PO HS [facility] Last Admin: 07/13/19 21:29 Dose: 25 mg Sertraline HCl (Zoloft -) 50 mg PO DAILY [facility] Last Admin: 07/13/19 10:42 Dose: 50 mg Tramadol HCl (Ultram -) 50 mg PO Q8H PRN PRN Reason: PAIN LEVEL 6-10 Last Admin: 07/13/19 19:15 Dose: 50 mg - Objective Vital Signs: Vital Signs Temperature 98.3 F 07/13/19 16:30 Pulse Rate 69 07/13/19 16:30 Respiratory Rate 20 07/13/19 16:30 Blood Pressure 149/74 02/20/20 16:30 O2 Sat by Pulse Oximetry (%) 95 07/11/19 21:00 Labs: CBC, BMP 07/11/19 08:05 07/12/19 06:55 Problem List - Problems (1) Abdominal pain Code(s): R10.9 - UNSPECIFIED ABDOMINAL PAIN Qualifiers: Abdominal location: unspecified location Qualified Code(s): R10.9 - Unspecified abdominal pain (2) Elevated LFTs Code(s): R94.5 - ABNORMAL RESULTS OF LIVER FUNCTION STUDIES (3) HTN (hypertension) Code(s): I10 - ESSENTIAL (PRIMARY) HYPERTENSION Qualifiers: Hypertension type: essential hypertension Qualified Code(s): I10 - Essential (primary) hypertension (4) HLD (hyperlipidemia) Code(s): E78.5 - HYPERLIPIDEMIA, UNSPECIFIED (5) Intraparenchymal hemorrhage of brain Code(s): I61.9 - NONTRAUMATIC INTRACEREBRAL HEMORRHAGE, UNSPECIFIED
[2019-07-14] MEDS: metoPROLOL SUCCINATE 25 MG TAB.SR.24H (FP) PO SCH (09:04)
[2019-07-14] MEDS: LISINOPRIL 20 MG TABLET (FP) PO SCH (09:04)
[2019-07-14] MEDS: HEPARIN NA (PORCINE) 5,000 UNITS/ML 1ML VIAL SQ SCH (09:04)
[2019-07-14] MEDS: amLODIPine BESYLATE 10 MG TABLET (FP) PO SCH (09:04)
[2019-07-14] MEDS: SERTRALINE HCL 50 MG TABLET (FP) PO SCH (09:04)
[2019-07-14] MEDS: levETIRAcetam 500 MG TABLET (FP) PO SCH (09:04)
[2019-07-14] MEDS: ASPIRIN COATED 81 MG TABLET.EC PO SCH (09:04)
[2019-07-14] MEDS: LIDOCAINE 5% TOPICAL PATCH TP SCH (09:05)
[2019-07-14 10:06] VITALS: BP 149/87; PULSE 66; TEMP 98.2
--- NOTE | 2019-07-14 12:47 | PN ---
Progress Note (short form) - Note Progress Note: Patient with improved pain and is able to ambulate with a cane. No Neurosurgery contraindication to discharge.
== END 2019-07-14 13:29 | disposition home or self-care (01) | DRG 544 ==
LOC: JER 09:05 → JERBED 12:45 → J8W 20:00 → J4S 07-13 20:06
PROVIDERS: ADMIT Internal Medicine; ATTEND Internal Medicine
DX: M48.56XA Collapsed vertebra, not elsewhere classified, lumbar region, initial encounter for fracture (principal); D64.9 Anemia, unspecified; N20.0 Calculus of kidney; Z86.73 Personal history of transient ischemic attack (TIA), and cerebral infarction without residual deficits; I10 Essential (primary) hypertension; F17.210 Nicotine dependence, cigarettes, uncomplicated; E78.5 Hyperlipidemia, unspecified; N23 Unspecified renal colic; R94.5 Abnormal results of liver function studies; M54.6 Pain in thoracic spine; M25.562 Pain in left knee
CPT/HCPCS: 36415; 72128-TC; 72131-TC; 74177-TC; 74178-TC; 76700-TC; 76775-TC; 76856-TC; 80053; 80074; 81003; 83516; 85025; 86038; 87045; 87046; 87086; 87324; 87449; 93005; 93010; 97116-GP; 97161-GP; 99285-25; J0131; J1644; J7030; Q9967